=== PATIENT | male | born 1990 | race Caucasian/White ===

== ENCOUNTER 2017-04-05 11:16 | Emergency (ER) | payer MEDICAID ==
[2017-04-05] MEDS ORDERED: LIDOCAINE/EPI 2% 1:100,000 20 ML VIAL ONE (11:45)
[2017-04-05] MEDS ORDERED: LIDOCAINE HCL 2% JELLY 1 APP/5 ML TUBE ONE (11:46)
--- NOTE | 2017-04-05 12:15 | ER PHYSICIAN DOCUMENTATION ---
Physician Documentation [facility] Name:Francisco Blackwell Age:27 yrs Sex:Male :1990 Arrival Date:04/05/2017 Time:11:16 Bed1 Private MD: Ambrosio Randle Disposition: 04/05/17 12:10 Discharged to Home/Self Care. Impression: Elbow Laceration, Abrasion. - Condition is Good. - Discharge Instructions: LACERATION, Extrem (suture, staple or tape). - Medical Reconciliation form form. - Follow up: Private Physician; When: 2 weeks; Reason: Staple/Suture removal. - Problem is new. - Symptoms have improved. HPI: 04/05 12:11 This 27 yrs old Male presents to ER via Private Vehicle with complaints of jm Laceration - R ELBOW. 12:11 The patient or guardian reports injury, a laceration. The complaints affect the right jm elbow. Context: resulted from playing sports, skateboarding. . Onset: The symptom(s)/episode began/occurred just prior to arrival. The patient has not experienced similar symptoms in the past. Pt skidded up both hands L knee and R elbow, but his R elbow has a lac. Full ROM and strength in all extremities. . Historical: - Allergies: No known drug Allergies; - Home Meds: 1. None - PMHx: None; - PSHx: None; - Tetanus: < 10 years. - Ebola Screening: : Patient denies exposure to infectious person. Patient denies travel to an Ebola-affected area in the 21 days before illness onset. . - Social history: Smoking status: Patient states was never smoker of tobacco. Patient uses alcohol Patient/guardian denies using marijuana. ROS: 12:13 Constitutional: Negative for fever. jm 12:13 MS/extremity: Positive for injury or acute deformity, abrasion, laceration. 12:13 Skin: Positive for abrasion(s), avulsion, rash. 12:13 Neuro: Negative for numbness, tingling. 12:13 All other systems are negative. Exam: 12:13 Constitutional: The patient appears alert, awake. jm 12:13 Back: CVA tenderness, is absent, bilateral lower back abrasions. . 12:13 Musculoskeletal/extremity: Extremities: grossly normal except: noted in the right elbow: laceration, There is no evidence of decreased ROM, swelling, ROM: full active range of motion, full passive range of motion. 12:13 Skin: Appearance: abrasions to both hands and L knee, all small. . Vital Signs: 11:23 BP 150 / 90; Pulse 109; Resp 16; Temp 98.1(O); Pulse Ox 94% on R/A; Weight 65.77 kg arc (R); Height 5 ft. 7 in. (170.18 cm) (R); Pain 8/10; 11:23 Body Mass Index 22.71 (65.77 kg, 170.18 cm) arc Laceration: 12:15 Wound Repair of 3cm ( 1.2in ) subcutaneous laceration to right elbow. Distal jm neuro/vascular/tendon intact. Anesthesia: Wound infiltrated with 8 mls of 2% lidocaine w/ Epi. Wound prep: Wound irrigation with saline. Skin closed with 4 4-0 Ethilon using Simple sutures. Dressed with Kerlix, bandaid. Patient tolerated well. MDM: 11:24 Patient medically screened. 12:15 Differential diagnosis: scattered abrasions w lac. Data reviewed: vital signs, nurses jm notes, and as a result, I will discharge patient. Counseling: I had a detailed discussion with the patient and/or guardian regarding: the historical points, exam findings, and any diagnostic results supporting the discharge/admit diagnosis, the need for outpatient follow up. Dispensed Medications: 11:34 Drug: Lidocaine-Epinephrine -2 % (1:100,000) 10 ml; {Note: given to Dr. Urbina for st administration. .} Route: Infiltration; 11:34 Drug: Lidocaine Ointment (2%) 1 inches; Route: Topical; Site: wound; st Signatures: Charleen Egan, Ambrosio Chapa RN, MD MD jm
--- NOTE | 2017-04-05 12:15 | ER NURSING DOCUMENTATION ---
Nurse's Notes [facility] Name:Francisco Blackwell Age:27 yrs Sex:Male :1990 Arrival Date:04/05/2017 Time:11:16 Bed1 Private MD: Diagnosis:Elbow Laceration;Abrasion Presentation: 04/05 11:25 Acuity: FRANKI 3 st 11:25 Presenting complaint: Patient states: pt was long boarding and came off of the long st board at about 30MPH and fell onto concrete. pt has multiple areas of road rash. pt has full ROM and no troubles weight bearing. pt denies hitting his head. Transition of care: Home. Complicating Factors: The patient fell landing on an outstretched hand. 11:25 Method Of Arrival: Private Vehicle st Triage Assessment: 11:27 General: Appears uncomfortable, Behavior is cooperative. Pain: Complains of pain in st right hand, left hand, right elbow and left knee Pain currently is 8 out of 10 on a pain scale. Pain began 30 min ago. Neuro: No deficits noted. Cardiovascular: No deficits noted. Respiratory: No deficits noted. GI: No deficits noted. Injury Description: Laceration sustained to right elbow. Historical: - Allergies: No known drug Allergies; - Home Meds: 1. None - PMHx: None; - PSHx: None; - Tetanus: < 10 years. - Ebola Screening: : Patient denies exposure to infectious person. Patient denies travel to an Ebola-affected area in the 21 days before illness onset. . - Social history: Smoking status: Patient states was never smoker of tobacco. Patient uses alcohol Patient/guardian denies using marijuana. Screenin:29 Infectious Disease Risk None. Abuse screen: Denies threats or abuse. Denies injuries st from another. Nutritional screening: No deficits noted. Vital Signs: 11:23 BP 150 / 90; Pulse 109; Resp 16; Temp 98.1(O); Pulse Ox 94% on R/A; Weight 65.77 kg arc (R); Height 5 ft. 7 in. (170.18 cm) (R); Pain 8/10; 11:23 Body Mass Index 22.71 (65.77 kg, 170.18 cm) arc ED Course: 11:17 Patient arrived in ED. ama 11:24 Charleen Egan RN is Primary Nurse. st 11:[address] 11:27 Ambrosio Urbina MD is Attending Physician. fatemeh 11:29 Valuables Remains with patient Patient has correct armband on for positive st identification. Placed in gown. Bed in low position. 11:46 Wound care to laceration located on right hand, left hand and left leg was cleaned with arc soap and water, Patient tolerated well. 11:47 Wound care to abrasion, located on back was cleaned with soap and water, Patient arc tolerated well. 11:47 Wound care to laceration located on right arm was cleaned with soap and water, arc Irrigation Normal Saline Patient tolerated well. 12:08 Wound care was dressed with bacitracin cling, band aid, Telfa. st Administered Medications: 11:34 Drug: Lidocaine-Epinephrine -2 % (1:100,000) 10 ml; {Note: given to Dr. Urbina for st administration. .} Route: Infiltration; 11:34 Drug: Lidocaine Ointment (2%) 1 inches; Route: Topical; Site: wound; st Outcome: 12:10 Discharge ordered by . fatemeh 12:14 Discharged to home ambulatory. st 12:14 Condition: improved 12:14 Discharge instructions given to patient, Instructed on discharge instructions, follow up and referral plans. medication usage, wound care. 12:15 [address] the ED[address] st Signatures: Charleen Egan RN RN st Meyer, John, MD MD jm Averdick, Andrew, Reg Reg ama Ginny Brooks, Reg Reg arc
== END 2017-04-05 12:15 | disposition home or self-care (01) ==
LOC: ER 11:16
DX: S51.011A Laceration without foreign body of right elbow, initial encounter (principal); S60.511A Abrasion of right hand, initial encounter; S60.512A Abrasion of left hand, initial encounter; S80.212A Abrasion, left knee, initial encounter; S30.810A Abrasion of lower back and pelvis, initial encounter; V00.131A Fall from skateboard, initial encounter; Y92.39 Other specified sports and athletic area as the place of occurrence of the external cause; Y93.51 Activity, roller skating (inline) and skateboarding
CPT/HCPCS: 12032; 99284